=== PATIENT | female | born 1960 | race Caucasian/White ===

== ENCOUNTER 2023-11-16 09:50 | Outpatient (CLI) | payer BC, SELFPAY ==
--- NOTE | ~2023-11-16 | CT_ITS ---
EXAMINATION: CT sinus wo con DATE: 11/16/2023 10:08 INDICATION: Chronic sinusitis TECHNIQUE: Computed tomography (CT) of the paranasal sinuses was performed without contrast. Iterativ e reconstruction technique was employed. Exam dose: 261.43 mGy-cm total exam DLP. COMPARISON: None FINDINGS: There is nasal septal deviation to the left inferiorly and to the right superiorly. There is symmetric prominent soft tissue swelling of the nasal turbinates. The paranasal sinuses, ostiomeatal units and mastoid air cells are well-developed and aerated. Middle and inner ear apparatus appear normal bilaterally. IMPRESSION: Septal deviation Soft tissue swelling of nasal turbinates Patent paranasal sinuses, ostiomeatal units and mastoid air cells Reviewed, dictated and finalized at [facility]. Reviewed, dictated and finalized at [facility].
== END 2023-11-16 09:51 ==
PROVIDERS: PCP Otolaryngology; Visit Provider Otolaryngology
DX: J32.9 Chronic sinusitis, unspecified (principal); J34.2 Deviated nasal septum
CPT/HCPCS: 70486